=== PATIENT | male | born 2000 | race Two or more races ===

== ENCOUNTER 2020-02-12 17:53 | Outpatient (REF) | payer MEDICAID, SELFPAY | END 2020-02-12 17:54 | disposition home or self-care (01) | LOC: HO.LAB 17:53 | PROVIDERS: Visit Provider Internal Medicine | DX: Z20.828 Contact with and (suspected) exposure to other viral communicable diseases (principal) | CPT/HCPCS: C9803; U0003 ==

== ENCOUNTER 2020-04-07 09:30 | Emergency (ER) | payer MEDICAID, SELFPAY ==
[2020-04-07 09:40] VITALS: BP 113/72; PULSE 77; RESP 14; TEMP 37.1; O2SAT 98; BMI 22.6
--- NOTE | 2020-04-07 10:01 | ED.GENADULT ---
HPI - General Adult General Chief complaint: General Medical Stated complaint: FACIAL AND TOOTH PAIN Time Seen by Provider: 04/07/20 10:00 Source: patient Mode of arrival: ambulatory Limitations: no limitations History of Present Illness HPI narrative: 19 y/o male presenting with nasal congestion and facial pain. He states his maxillary area on both sides feels very full and uncomfortable. He is blowing white, yellow and green mucus out of his nose for the last 3 days. He reports the pain is radiating to all of his upper teeth that they are sore. He denies fever, chills, N/V, ear pain, headaches, myalgias. He has no history of allergies or sinus infections. MD complaint: sinus pain Onset (ago): day(s) (3) Location: face Radiation: other (teeth) Severity: moderate Quality: aching Pain Consistency: constant Relieving factors: other (blowing nose and taking Advil ) Exacerbating factors: other (bending down ) Associated symptoms: denies other symptoms Treatments prior to arrival: NSAID Related Data Previous Rx's Medication Instructions Recorded amoxicillin-pot clavulanate 1 tab PO BID #20 tab 04/07/20 [Augmentin] fluticasone propionate [Flonase 1 spray INTRANASAL BID #16 g 04/07/20 Allergy Relief] Allergies Allergy/AdvReac Type Severity Reaction Status Date / Time No Known Allergies Allergy Unverified 11/09/19 16:49 Review of Systems Review of Systems: Constitutional: No Fever, No Chills ENT/Mouth: No sore throat, + Rhinorrhea, No Swallowing Difficulty, +nasal congestion, No ear pain Eyes: No Eye Pain, No Swelling, No Redness Cardiovascular: No Chest Pain, No SOB Respiratory: No Cough, No Sputum Gastrointestinal: No Nausea, No Vomiting, No Diarrhea, No abdominal Pain Musculoskeletal: No Myalgias Neuro: No Dizziness, No Headache Heme/Lymph: No Lymphadenopathy PMFSH Past Medical History Attestation statement: The following information was validated with the patient. Medical History Asthma Social History Social History Smoked in Last 30 Days: No Use of substances other than those prescribed or required for medical reasons: No Advance Directives: No Advance Directives Information Provided: No Physical Exam Vital Signs: Vital Signs: Last Vital Signs Temp 98.8 F 04/07/20 09:40 Pulse 77 04/07/20 09:40 Resp 14 04/07/20 09:40 BP 113/72 04/07/20 09:40 Pulse Ox 98 04/07/20 09:40 Body Mass Index 22.6 Appearance: Alert. Oriented X3. No acute distress. HEENT: normal external inspection, tender maxillary sinuses bilaterally, nasal turbinates erythematous with white nasal discharge. teeth are normal with mild tenderness of upper teeth - no decay, no gingival erythema. CVS: Normal heart rate and rhythm. Pulses normal. Respiratory: No respiratory distress. Lungs CTAB Skin: Skin warm and dry. Normal skin color. Normal skin turgor. No rashes. Extremities: atraumatic, no edema Neuro: Oriented X 3. Non-focal Course Course Course Narrative: 19 y/o male presenting with maxillary sinus pain and nasal congestion consistent with acute sinusitis. Will treat with augmentin and nasal steroid. Sinus rinses discussed. He is stable for discharge and will f/u with his PCP as needed. Discharge Plan Discharge Clinical Impression: Sinusitis Qualifiers: Sinusitis location: maxillary Chronicity: acute Recurrence: non-recurrent Qualified Code(s): J01.00 - Acute maxillary sinusitis, unspecified Patient Disposition: Home, Self-Care Instructions: Sinusitis (ED) Additional Instructions: Take the antibiotics as prescribed, complete the entire course. Use the prescribed nasal spray twice per day. Recommend Tylenol and/or Motrin as needed for pain. Recommend trial of sinus/nasal rinses with sterile water or sterile salt water. A neti pot can be found over the counter at the pharmacy. Follow the instructions on the package. Follow up with your doctor next week if no improvement. Prescriptions: New amoxicillin-pot clavulanate [Augmentin] 875-125 mg tablet 1 tab PO BID Qty: 20 RF: 0 fluticasone propionate [Flonase Allergy Relief] 50 mcg/actuation spray,suspension 1 spray intranasal BID Qty: 16 RF: 0
== END 2020-04-07 10:23 | disposition home or self-care (01) ==
PROVIDERS: Emergency Provider Emergency Medicine Emergency Medical Services
DX: J01.00 Acute maxillary sinusitis, unspecified (principal); R09.81 Nasal congestion; K08.89 Other specified disorders of teeth and supporting structures
CPT/HCPCS: 99283

== ENCOUNTER 2020-06-04 11:21 | Emergency (ER) | payer MEDICAID, SELFPAY ==
[2020-06-04 12:23] VITALS: BP 114/58; PULSE 66; RESP 16; TEMP 36.9; O2SAT 99; BMI 22.4
--- NOTE | 2020-06-04 12:59 | ED.URI ---
HPI - URI/Sore Throat General Chief Complaint: Upper Respiratory Symptoms <Pepe Jaeger NP - Last Filed: 06/04/20 15:10> Stated Complaint: congestion <Pepe Jaeger NP - Last Filed: 06/04/20 15:10> Time Seen by Provider: 06/04/20 12:59 <Pepe Jaeger NP - Last Filed: 06/04/20 15:10> Source: patient <Pepe Jaeger NP - Last Filed: 06/04/20 15:10> Mode of arrival: ambulatory <Pepe Jaeger NP - Last Filed: 06/04/20 15:10> Limitations: no limitations <Pepe Jaeger NP - Last Filed: 06/04/20 15:10> History of Present Illness HPI Narrative: Runny nose/congestion/sneezing and watery discharge from the eyes consistent with his previous allergies. No recent travel, sick contact, chest pain shortness of breath. <Pepe Jaeger NP - Last Filed: 06/04/20 15:10> MD elicited complaint: nasal congestion <Pepe Jaeger NP - Last Filed: 06/04/20 15:10> Pertinent past history: seasonal allergies <Pepe Jaeger NP - Last Filed: 06/04/20 15:10> Onset (ago): day(s) <Pepe Jaeger NP - Last Filed: 06/04/20 15:10> Severity: mild <Pepe Jaeger NP - Last Filed: 06/04/20 15:10> Description of mucous: clear <Pepe Jaeger NP - Last Filed: 06/04/20 15:10> Exacerbating factors: nothing <Pepe Jaeger NP - Last Filed: 06/04/20 15:10> Relieving factors: nothing <Pepe Jaeger NP - Last Filed: 06/04/20 15:10> Associated symptoms: denies other symptoms <Pepe Jaeger NP - Last Filed: 06/04/20 15:10> Treatments prior to arrival: none <Pepe Jaeger NP - Last Filed: 06/04/20 15:10> Related Data Home Medications: Previous Rx's Medication Instructions Recorded amoxicillin-pot clavulanate 1 tab PO BID #20 tab 04/07/20 [Augmentin] fluticasone propionate [Flonase 1 spray INTRANASAL BID #16 g 04/07/20 Allergy Relief] fluticasone propionate [Flonase 2 spray INTRANASAL DAILY #16 g 06/04/20 Allergy Relief] loratadine [Allerclear] 10 mg PO DAILY PRN #30 tab 06/04/20 <Pepe Jaeger NP - Last Filed: 06/04/20 15:10> Allergies/Adverse Reactions: Allergies Allergy/AdvReac Type Severity Reaction Status Date / Time No Known Allergies Allergy Unverified 11/09/19 16:49 <Pepe Jaeger NP - Last Filed: 06/04/20 15:10> Review of Systems Review of Systems: Constitutional: No Weight loss, No Fever, No Chills, No Night Sweats, No Fatigue, No Malaise ENT/Mouth: No Hearing loss, No Ear Pain, + Nasal Congestion, No Sinus Pain, No Hoarseness, No sore throat, + Rhinorrhea, No Swallowing Difficulty Eyes: No Eye Pain, No Swelling, No Redness, No Foreign Body, No Discharge, No Vision Changes Cardiovascular: No Chest Pain, No SOB, No Dyspnea on Exertion, No Orthopnea, No Edema, No Palpitations Respiratory: No Cough, No Sputum, No Wheezing, No Smoke Exposure, No Dyspnea Gastrointestinal: No Nausea, No Vomiting, No Diarrhea, No Constipation, No abdominal Pain, No Hematochezia, No Melena Genitourinary: No Dysuria, No Urinary Frequency, No Hematuria, No Urinary Incontinence, No Urgency, No Flank Pain, No Urinary Flow Changes, No Hesitancy Musculoskeletal: No joint pain, No Myalgias, No Joint Swelling Skin: No Skin Lesions, No rash Neuro: No Weakness, No Numbness, No Paresthesias, No Loss of Consciousness, No Dizziness, No Headache Psych: No Social Issues Heme/Lymph: No Bruising, No Bleeding,No Lymphadenopathy Endocrine: No Polyuria, No Polydipsia, No Temperature Intolerance <Pepe Jaeger NP - Last Filed: 06/04/20 15:10> Yes all other systems are reviewed and are negative <Pepe Jaeger NP - Last Filed: 06/04/20 15:10> PMFSH Past Medical History Medical History: Medical History Asthma <Pepe Jaeger NP - Last Filed: 06/04/20 15:10> Social History Social History: Social History Advance Directives: No Advance Directives Information Provided: Yes <Pepe Jaeger NP - Last Filed: 06/04/20 15:10> Physical Exam Vital Signs: Vital Signs: Last Vital Signs Temp 98.5 F 06/04/20 12:23 Pulse 66 06/04/20 12:23 Resp 16 06/04/20 12:23 BP 114/58 L 06/04/20 12:23 Pulse Ox 99 06/04/20 12:23 Body Mass Index 22.4 Reviewed <Pepe Jaeger NP - Last Filed: 06/04/20 15:10> Vital Signs: Last Vital Signs Temp 98.5 F 06/04/20 12:23 Pulse 66 06/04/20 12:23 Resp 16 06/04/20 12:23 BP 114/58 L 06/04/20 12:23 Pulse Ox 99 06/04/20 12:23 Body Mass Index 22.4 <Josh Juarez MD - Last Filed: 06/13/20 10:56> Const: General: cooperative and healthy appearing; No acute distress or intoxicated appearing <Pepe Jaeger NP - Last Filed: 06/04/20 15:10> Nutritional Appearance: average body habitus <Pepe Jaeger NP - Last Filed: 06/04/20 15:10> Orientation/consciousness: patient oriented x3 <Pepe Jaeger NP - Last Filed: 06/04/20 15:10> HENMT: Head: Yes normal to inspection <Pepe Jaeger NP - Last Filed: 06/04/20 15:10> Ears: hearing grossly normal bilaterally <Pepe Jaeger NP - Last Filed: 06/04/20 15:10> Eyes: General: appearance normal, both eyes and all related structures <Pepe Jaeger NP - Last Filed: 06/04/20 15:10> Visual Faye: normal visual faye by confrontation <Pepe Jaeger NP - Last Filed: 06/04/20 15:10> Neck: Neck: Yes normal visual inspection, No positive Brudzinski's sign, No positive Kernig's sign and No tender <Pepe Jaeger - Last Filed: 06/04/20 15:10> Thyroid: Thyroid normal <[facility] Heide - Last Filed: 06/04/20 15:10> Chest: Chest palpation & inspection: normal inspection of the chest <[facility] Heide - Last Filed: 06/04/20 15:10> Resp: Effort & Inspection: normal respiratory effort <[facility] Jaeger - Last Filed: 06/04/20 15:10> Auscultation: clear to auscultation bilaterally <[facility] Jaeger - Last Filed: 06/04/20 15:10> Cardio: Jugular venous distension: no JVD <[facility] Jaeger - Last Filed: 06/04/20 15:10> Rhythm: regular rhythm <[facility] Jaeger - Last Filed: 06/04/20 15:10> Heart sounds: S1 normal heart sound present and S2 normal heart sound present <[facility] Jaeger, - Last Filed: 06/04/20 15:10> GI: Inspection: Yes normal to inspection <[facility] Jaeger - Last Filed: 06/04/20 15:10> Percussion: Yes normal to percussion <[facility] Jaeger, - Last Filed: 06/04/20 15:10> Auscultation: normal bowel sounds <[facility] Jaeger - Last Filed: 06/04/20 15:10> : General: Yes no CVA tenderness <[facility] Jaeger, - Last Filed: 06/04/20 15:10> Back/Spine/Pelvis: Back: no CVA tenderness <[facility] Jaeger - Last Filed: 06/04/20 15:10> Skin: General skin exam: no rashes or lesions noted <[facility] Jaeger, - Last Filed: 06/04/20 15:10> Neuro: General: patient oriented x3 <Pepe Jaeger, COLLECTION AGENT - Last Filed: 06/04/20 15:10> Extrem: General: Yes normal to inspection <[facility] Jaeger, - Last Filed: 06/04/20 15:10> Course Course Course Narrative: I have reviewed the chart <Josh Juarez MD - Last Filed: 06/13/20 10:56> Reevaluation(s) Reevaluation #1: COVID/RSV/flu negative given that he has had symptoms for 5 days this is likely a true negative however possibility still exist and also this is more like his allergies but will advise him for precautions supportive Care return, follow-up instructions. He verbalized understanding. Stable for discharge <Pepe Jaeger NP - Last Filed: 06/04/20 15:10> MDM - URI/Sore Throat Lab Data Labs: Lab Results 06/04/20 Range/Units 13:12 Coronavirus (PCR) NEGATIVE (Negative) Influenza Type A (PCR) NEGATIVE (Negative) Influenza Type B (PCR) NEGATIVE (Negative) RSV RNA Qual (PCR) NEGATIVE (Negative) <Pepe Jaeger NP - Last Filed: 06/04/20 15:10> Lab Results 06/04/20 Range/Units 13:12 Coronavirus (PCR) NEGATIVE (Negative) Influenza Type A (PCR) NEGATIVE (Negative) Influenza Type B (PCR) NEGATIVE (Negative) RSV RNA Qual (PCR) NEGATIVE (Negative) <Josh Juarez MD - Last Filed: 06/13/20 10:56> Discharge Plan Discharge Clinical Impression: Upper respiratory infection <Pepe Jaeger NP - Last Filed: 06/04/20 15:10> Patient Disposition: Home, Self-Care <Pepe Jaeger NP - Last Filed: 06/04/20 15:10> Instructions: Upper Respiratory Infection (ED) <Pepe Jaeger NP - Last Filed: 06/04/20 15:10> Additional Instructions: Your COVID test was negative today <Pepe Jaeger NP - Last Filed: 06/04/20 15:10> Prescriptions: New fluticasone propionate [Flonase Allergy Relief] 50 mcg/actuation spray,suspension 2 spray intranasal DAILY Qty: 16 RF: 0 loratadine [Allerclear] 10 mg tablet 10 mg PO DAILY PRN (Reason: allergy symptoms) Qty: 30 RF: 0 No Action amoxicillin-pot clavulanate [Augmentin] 875-125 mg tablet 1 tab PO BID Qty: 20 RF: 0 fluticasone propionate [Flonase Allergy Relief] 50 mcg/actuation spray,suspension 1 spray intranasal BID Qty: 16 RF: 0 <Pepe Jaeger NP - Last Filed: 06/04/20 15:10> Referrals: Physician,Unknown [Primary Care Provider] - 2 days <Pepe Jaeger NP - Last Filed: 06/04/20 15:10> Interventions: ED Discharge Assessment Last Done: 06/04/20 15:01 <Pepe Jaeger NP - Last Filed: 06/04/20 15:10> Discharge Date/Time: 06/04/20 15:01 <Pepe Jaeger NP - Last Filed: 06/04/20 15:10>
[2020-06-04 14:13] LABS: Influenza A PCR NEGATIVE (Negative); Influenza B PCR NEGATIVE (Negative); Resp Syncy Virus RNA Qual PCR NEGATIVE (Negative); SARS COV2 PCR INHOUSE NEGATIVE (Negative)
== END 2020-06-04 15:01 | disposition home or self-care (01) ==
PROVIDERS: Nurse Practitioner Primary Care; Emergency Provider Emergency Medicine
DX: J06.9 Acute upper respiratory infection, unspecified (principal); Z20.822 Contact with and (suspected) exposure to COVID-19; J45.909 Unspecified asthma, uncomplicated
CPT/HCPCS: 0241U; 36415; 99283

== ENCOUNTER 2020-06-14 20:35 | Emergency (ER) | payer MEDICAID, SELFPAY ==
[2020-06-14 21:20] VITALS: BP 121/65; PULSE 98; RESP 18; TEMP 37.1; O2SAT 98
[2020-06-14 21:25] VITALS: BMI 22.4
[2020-06-14 22:07] LABS: COVID-19 Test Negative (Negative)
[2020-06-14 23:15] VITALS: BP 113/74; PULSE 71; RESP 16; O2SAT 98
--- NOTE | 2020-06-14 23:15 | PC.NURSE ---
Pt sitting upright in room, speaking full sentences, denies pain, awaiting primary MD yamileth. VSS. Continue to monitor.
--- NOTE | 2020-06-14 23:20 | PC.NURSE ---
at bedside for primary eval.
--- NOTE | 2020-06-14 23:26 | ED.GENADULT ---
HPI - General Adult General Chief complaint: Upper Respiratory Symptoms Stated complaint: COVID SYMPTOMS Time Seen by Provider: 06/14/20 21:49 Source: patient Mode of arrival: ambulatory History of Present Illness HPI narrative: 19-year-old male with out significant past medical history presents with ?runny nose, ear popping, sore throat, nasal congestion, itchy eyes?. Patient states that he has been taking Claritin without any additional antihistamines or Flonase and states that the medication has only helped him out for a couple of hours at a time. Otherwise, he denies any fever, chills, GI symptoms, new cough. Related Data Previous Rx's Medication Instructions Recorded amoxicillin-pot clavulanate 1 tab PO BID #20 tab 04/07/20 [Augmentin] fluticasone propionate [Flonase 1 spray INTRANASAL BID #16 g 04/07/20 Allergy Relief] fluticasone propionate [Flonase 2 spray INTRANASAL DAILY #16 g 06/04/20 Allergy Relief] loratadine [Allerclear] 10 mg PO DAILY PRN #30 tab 06/04/20 Allergies Allergy/AdvReac Type Severity Reaction Status Date / Time No Known Allergies Allergy Unverified 11/09/19 16:49 Review of Systems Review of Systems: Pertinent positives and negatives as stated in HPI 10 point review of systems otherwise negative. PMFSH Past Medical History Source: nursing notes reviewed Medical History Asthma Social History Social History Advance Directives: No Advance Directives Information Provided: Yes Physical Exam Vital Signs: Vital Signs: Last Vital Signs Temp 98.8 F 06/14/20 21:20 Pulse 71 06/14/20 23:15 Resp 16 06/14/20 23:15 BP 113/74 06/14/20 23:15 Pulse Ox 98 06/14/20 23:15 Body Mass Index 22.4 VITAL SIGNS: Reviewed. GENERAL: Well developed, well nourished, in no acute distress. HEAD: Normocephalic/atraumatic, EYES: PERRLA, EOMI with watery discharge and no evidence of conjunctival injection EARS: Ext canals without abnormality, mild bulging but non-erythematous NOSE: Nares patent bilateral, boggy turbinates OROPHARYNX: no oral lesions noted, posterior pharynx clear, cobblestoning, and non-erythematous without noted tonsillar enlargement/erythema/exudates NECK: Supple, no adenopathy LUNGS: Normal breath sounds. No adventitious sounds or accessory muscle use. SpO2<98> CARDIOVASCULAR: Regular rate and rhythm without noted murmurs ABDOMEN: Soft, non-tender, non-distended with bowel sounds. NEUROLOGIC: Alert and oriented x 4. Course Course Course Narrative: 19-year-old male with history and clinical presentation consistent with allergic rhinitis and review COVID serology is negative. No evidence to suggest asthma exacerbation. Medical Decision Making Lab Data Labs: Lab Results 06/14/20 Range/Units 21:35 COVID-19 (ERMELINDA) Negative (Negative) COVID-19 Clin Com See Note Discharge Plan Discharge Clinical Impression: Allergic rhinitis Patient Disposition: Home, Self-Care Instructions: Allergic Rhinitis (ED), Fluticasone (Into the nose), Loratadine (By mouth) Additional Instructions: Recommend using Flonase in conjunction with Claritin, Daily, as directed on the outside packaging for improved symptom control. You may need to add additional [id number] medications such as Benadryl or Zyrtec. Do not hesitate to follow-up with your primary care provider in the next 2-3 days for further re-evaluation. Return to the emergency department if you experience any acute worsening of your symptoms. Prescriptions: No Action amoxicillin-pot clavulanate [Augmentin] 875-125 mg tablet 1 tab PO BID Qty: 20 RF: 0 fluticasone propionate [Flonase Allergy Relief] 50 mcg/actuation spray,suspension 1 spray intranasal BID Qty: 16 RF: 0 fluticasone propionate [Flonase Allergy Relief] 50 mcg/actuation spray,suspension 2 spray intranasal DAILY Qty: 16 RF: 0 loratadine [Allerclear] 10 mg tablet 10 mg PO DAILY PRN (Reason: allergy symptoms) Qty: 30 RF: 0 Referrals: Physician,Unknown [Primary Care Provider] - 2 days
== END 2020-06-14 23:42 | disposition home or self-care (01) ==
PROVIDERS: Emergency Provider Student in an Organized Health Care Education/Training Program
DX: J30.9 Allergic rhinitis, unspecified (principal); R05 Cough; Z20.822 Contact with and (suspected) exposure to COVID-19
CPT/HCPCS: 36415; 87635; 99284

== ENCOUNTER 2021-03-02 22:14 | Emergency (ER) | payer MEDICAID, SELFPAY ==
--- NOTE | ~2021-03-02 | XR_ITS ---
EXAMINATION: XR CHEST CLINICAL INFORMATION: Cough COMPARISON: 05/14/2019 TECHNIQUE: Frontal view of the chest was obtained. FINDINGS: No significant abnormality is noted involving the heart, lungs, mediastinum, bony thorax or soft tissues. XR/XR chest 1V IMPRESSION: Unremarkable examination.
[2021-03-02 22:20] VITALS: BP 141/82; PULSE 114; RESP 16; TEMP 38.3; O2SAT 98; BMI 25.7
[2021-03-02 22:36] LABS: COVID-19 Test Positive (Negative); IDNOW Serial# 9DD0AD1C
--- NOTE | 2021-03-02 23:37 | ED_ITS ---
HPI - URI/Sore Throat General Chief Complaint: Upper Respiratory Symptoms Stated Complaint: sinus pressure Time Seen by Provider: 03/02/21 22:23 Source: patient Mode of arrival: ambulatory History of Present Illness HPI Narrative: 20-year-old male without significant past medical history who presents without COVID-19 vaccination for headache, dry cough, sore throat and fever for 1 week without associated nausea, vomiting, diarrhea and states he took a COVID test yesterday at home but that it was negative. Related Data Previous Rx's Medication Instructions Recorded amoxicillin 875 mg-potassium 1 tab PO BID #20 tab 04/07/20 clavulanate 125 mg tablet (Augmentin) fluticasone propionate 50 1 spray INTRANASAL BID #16 g 04/07/20 mcg/actuation nasal spray,suspension (Flonase Allergy Relief) fluticasone propionate 50 2 spray INTRANASAL DAILY #16 g 06/04/20 mcg/actuation nasal spray,suspension (Flonase Allergy Relief) loratadine 10 mg tablet 10 mg PO DAILY PRN #30 tab 06/04/20 (Allerclear) Allergies Allergy/AdvReac Type Severity Reaction Status Date / Time No Known Allergies Allergy Unverified 03/02/21 22:22 Review of Systems Review of Systems: Pertinent positives and negatives as stated in HPI 10 point review of systems is otherwise negative. PMFSH Past Medical History Source: nursing notes reviewed Medical History Asthma Social History Social History Advance Directives: No Advance Directives Information Provided: Yes Physical Exam Vital Signs: Vital Signs: Last Vital Signs Temp 100.9 F H 03/02/21 22:20 Pulse 114 H 03/02/21 22:20 Resp 16 03/02/21 22:20 BP 141/82 H 03/02/21 22:20 Pulse Ox 98 03/02/21 22:20 BMI result Body Mass Index 25.7 VITAL SIGNS: Reviewed. GENERAL: Appears well, Well developed, well nourished, in no acute distress. HEAD: Normocephalic/atrauatic, EYES: PERRLA, EOMI EARS: Ext canals without abnormality, TMs non-bulging and non-erythematous NOSE: Nares patent bilateral OROPHARYNX: no oral lesions noted, posterior pharynx clear and non-erythematous without noted tonsillar enlargement/erythema/exudates NECK: Supple, no adenopathy LUNGS: Normal breath sounds, no tachypnea No adventitious sounds or accessory muscle use. SpO2<98> CARDIOVASCULAR: Regular rate and rhythm without noted murmurs ABDOMEN: Soft, non-tender, non-distended with bowel sounds. NEUROLOGIC: Alert and oriented x 4. Course Course Course Narrative: 20-year-old male with history and clinical presentation consistent with viral syndrome and review of all investigations consistent with COVID-19 infection. Patient was informed of all results, instructed on isolation, and on treatment regimen. Who is otherwise discharged home in stable condition without evidence of tachypnea, tachycardia, was treated here for elevated temperature with Tylenol and ibuprofen, and is otherwise oxygenating well on room air. MDM - URI/Sore Throat Lab Data Labs: Lab Results 03/02/21 Range/Units 22:20 COVID-19 (ERMELINDA) Positive A (Negative) COVID-19 Clin Com See Note Discharge Plan Discharge Clinical Impression: Lab test positive for detection of COVID-19 virus, Viral syndrome Patient Disposition: Home, Self-Care Instructions: Viral Syndrome (ED), COVID-19 (Coronavirus Disease 2019) (ED) Additional Instructions: 1. Recommend [id number] Tylenol/ibuprofen for body aches, headaches, temperatures greater than 100.4. 2. Recommend NyQuil for cough, be cautious regarding the Tylenol content within NyQuil and do not exceed 4000 mg within 24 hours. You have tested positive for COVID-19 and must isolate for the next 14 days and follow all state and Federal guidelines. Return to the ER for worsening symptoms. Prescriptions: No Action amoxicillin-pot clavulanate [Augmentin] 875-125 mg tablet 1 tab PO BID Qty: 20 RF: 0 fluticasone propionate [Flonase Allergy Relief] 50 mcg/actuation spray,suspension 1 spray intranasal BID Qty: 16 RF: 0 fluticasone propionate [Flonase Allergy Relief] 50 mcg/actuation sp ray,suspension 2 spray intranasal DAILY Qty: 16 RF: 0 loratadine [Allerclear] 10 mg tablet 10 mg PO DAILY PRN (Reason: allergy symptoms) Qty: 30 RF: 0
[2021-03-02] MEDS: Ibuprofen 400 MG TABLET PO (23:38)
[2021-03-02] MEDS: Acetaminophen 325 MG TABLET 975 MG PO (23:38)
[2021-03-03 00:05] VITALS: BP 120/75; PULSE 102; RESP 17; TEMP 38.1; O2SAT 95
== END 2021-03-03 00:14 | disposition home or self-care (01) ==
LOC: HO.ED 23:52
PROVIDERS: Emergency Provider Student in an Organized Health Care Education/Training Program
DX: U07.1 COVID-19 (principal); R51.9 Headache, unspecified; R05.9 Cough, unspecified; R50.9 Fever, unspecified
CPT/HCPCS: 71045; 87635; 99283

== ENCOUNTER 2021-05-30 15:54 | Emergency (ER) | payer MEDICAID, SELFPAY ==
--- NOTE | 2021-05-30 16:44 | PC.NURSE ---
called patient at this time, no response
--- NOTE | 2021-05-30 17:14 | PC.NURSE ---
attempted to call patient at this time, no response
== END 2021-05-30 17:15 | disposition left against medical advice (07) ==
PROVIDERS: Emergency Provider Emergency Medicine
DX: J02.9 Acute pharyngitis, unspecified (principal)

== ENCOUNTER 2021-05-31 17:46 | Emergency (ER) | payer MEDICAID, SELFPAY ==
[2021-05-31 17:58] VITALS: BP 127/79; PULSE 81; RESP 19; TEMP 37.6; O2SAT 98; BMI 27.1
--- NOTE | 2021-05-31 18:23 | ED.URI ---
HPI - URI/Sore Throat General Chief Complaint: Upper Respiratory Symptoms Stated Complaint: sorethroat Time Seen by Provider: 05/31/21 17:58 Source: patient Mode of arrival: ambulatory History of Present Illness HPI Narrative: 20-year-old male with a past medical history of asthma presenting to the ED complaining of sore throat, nasal congestion/rhinorrhea x2 days. Reports slight cough. Denies fever, chills, ear pain,, inability/difficulty swallowing, recent travel MD elicited complaint: sore throat Onset (ago): day(s) Related Data Previous Rx's Medication Instructions Recorded amoxicillin 875 mg-potassium 1 tab PO BID #20 tab 04/07/20 clavulanate 125 mg tablet (Augmentin) fluticasone propionate 50 1 spray INTRANASAL BID #16 g 04/07/20 mcg/actuation nasal spray,suspension (Flonase Allergy Relief) fluticasone propionate 50 2 spray INTRANASAL DAILY #16 g 06/04/20 mcg/actuation nasal spray,suspension (Flonase Allergy Relief) loratadine 10 mg tablet 10 mg PO DAILY PRN #30 tab 06/04/20 (Allerclear) Allergies Allergy/AdvReac Type Severity Reaction Status Date / Time No Known Allergies Allergy Verified 05/31/21 18:21 Review of Systems Review of Systems: Constitutional: No Fever, No Chills ENT/Mouth: No Ear Pain, + Nasal Congestion, No Sinus Pain, No Hoarseness, + sore throat, + Rhinorrhea, No Swallowing Difficulty Cardiovascular: No Chest Pain, No SOB Respiratory: No Cough, No Sputum, No Wheezing Gastrointestinal: No Nausea, No Vomiting, No Diarrhea, No Constipation, No Abdominal pain Genitourinary:, No Dysuria, No Urinary Frequency, No Flank Pain Musculoskeletal: No joint pain, No Myalgias, No Joint Swelling Skin: No Skin Lesions, No rash Neuro: No Weakness, No Numbness, No Paresthesias Yes all other systems are reviewed and are negative [facility] Past Medical History Attestation statement: The following information was validated with the patient. Medical History Asthma Social History Social History Advance Directives: No Advance Directives Information Provided: No Physical Exam Vital Signs: Vital Signs: Last Vital Signs Temp 99.6 F 05/31/21 17:58 Pulse 81 05/31/21 17:58 Resp 19 05/31/21 17:58 BP 127/79 05/31/21 17:58 Pulse Ox 98 05/31/21 17:58 BMI result Body Mass Index 27.1 Const: General: cooperative, healthy appearing, no acute distress, well developed, alert and awake Orientation/consciousness: patient oriented x3 Limitations: no limitations HEENT: Other: + bilateral tonsillar swelling, no erythema, no exudates Head: Yes normal to inspection Ears: hearing grossly normal bilaterally General nose exam: Normal external nose present Face and sinus: Yes normal facial exam Throat: Yes uvula midline, No peritonsillar mass, No uvula laterally displaced and No uvular edema Eyes: General: appearance normal, both eyes and all related structures EOM: EOMs intact bilaterally Neck: Neck: Yes normal visual inspection, Yes no meningeal signs, Yes trachea midline and Yes supple Resp: Effort & Inspection: normal respiratory effort, no respiratory distress and no stridor Auscultation: clear to auscultation bilaterally, no rales, no rhonchi and no wheezes Cardio: Rate: regular rate Heart sounds: S1 normal heart sound present and S2 normal heart sound present GI: Inspection: Yes normal to inspection : General: Yes no CVA tenderness Back/Spine/Pelvis: Back: no CVA tenderness Skin: Rashes: no rashes Wounds: no wounds Neuro: General: patient oriented x3 and no meningeal signs Gait exam (Neuro): Normal gait present Extrem: General: Yes normal to inspection Course Course Course Narrative: -COVID-19 negative. Rapid strep negative. MDM - URI/Sore Throat MDM Narrative Medical decision making narrative: 20-year-old male with a past medical history of asthma presenting to the ED complaining of sore throat, nasal congestion/rhinorrhea x2 days. On exam vital signs stable, low-grade temp 99.6 degrees, NAD, nontoxic appearing, talking in complete sentences, bilateral tonsillar swelling noted without exudates, handling secretions, lungs CTA. Concern for pharyngitis vs viral syndrome. No evidence of [employer] Plan: COVID-19/rapid strep Medical Records Attestation: I reviewed the patient's medical records. Lab Data Attestation: I reviewed the patient's lab results. Labs: Lab Results 05/31/21 05/31/21 Range/Units 18:09 18:09 COVID-19 (ER[facility]DA) Negative (Negative) COVID-19 Clin Com See Note S. pyogenes GrpA [facility] Negative (Negative) Discharge Plan Discharge Clinical Impression: Pharyngitis Patient Disposition: Home, Self-Care Instructions: Pharyngitis (ED) Additional Instructions: you tested negative for COVID-19 and strep throat Gargle with warm salt water as needed Take Tylenol and Motrin Please follow-up with her doctor If you develop fever unresolved with medications, difficulty/inability to swallow please return to the emergency department Prescriptions: No Action amoxicillin-pot clavulanate [Augmentin] 875-125 mg tablet 1 tab PO BID Qty: 20 0RF fluticasone propionate [Flonase Allergy Relief] 50 mcg/actuation spray,suspension 1 spray intranasal BID Qty: 16 0RF Rx Instructions: administer into each nostril fluticasone propionate [Flonase Allergy Relief] 50 mcg/actuation spray,suspension 2 spray intranasal DAILY Qty: 16 0RF Rx Instructions: administer into each nostril loratadine [Allerclear] 10 mg tablet 10 mg PO DAILY PRN (Reason: allergy symptoms) Qty: 30 0RF Referrals: [facility] [Primary Care Provider] - 5 days
[2021-05-31 18:26] LABS: Strep A Nucleic Acid Negative (Negative)
[2021-05-31 18:34] LABS: COVID-19 Test Negative (Negative)
== END 2021-05-31 18:57 | disposition home or self-care (01) ==
PROVIDERS: Physician Assistant Medical; Emergency Provider Internal Medicine
DX: J02.9 Acute pharyngitis, unspecified (principal); Z20.822 Contact with and (suspected) exposure to COVID-19
CPT/HCPCS: 36415; 87635; 87651; 99283

== ENCOUNTER 2021-07-05 01:42 | Emergency (ER) | payer MEDICAID, SELFPAY ==
[2021-07-05 03:20] VITALS: BP 136/88; PULSE 97; RESP 18; TEMP 37.9; O2SAT 98; BMI 28.0
[2021-07-05] MEDS: Acetaminophen 325 MG TABLET 650 MG PO (03:25)
[2021-07-05 03:49] LABS: COVID-19 Test Negative (Negative); IDNOW Serial# 16C4AD1C; Influenza A Positive (Negative); Influenza B2 Negative (Negative)
[2021-07-05 04:13] VITALS: BP 137/91; PULSE 93; RESP 14; TEMP 36.9; O2SAT 98
--- NOTE | 2021-07-05 05:30 | PC.NURSE ---
pt was told results and left without being seen. Provider is aware.
== END 2021-07-05 05:30 | disposition left against medical advice (07) ==
PROVIDERS: Emergency Provider Emergency Medicine; PCP Nurse Practitioner
DX: R05.9 Cough, unspecified (principal); R09.89 Other specified symptoms and signs involving the circulatory and respiratory systems; R51.9 Headache, unspecified; Z20.822 Contact with and (suspected) exposure to COVID-19
CPT/HCPCS: 87502; 87635; 99282; 99283

== ENCOUNTER 2022-05-09 02:00 | Emergency (ER) | payer MEDICAID, SELFPAY ==
[2022-05-09 02:07] VITALS: BP 119/74; PULSE 79; RESP 16; TEMP 36.8; O2SAT 96; BMI 29.2
--- NOTE | 2022-05-09 03:03 | ED_ITS ---
HPI - General Adult General Chief complaint: General Medical Stated complaint: Sore throat Time Seen by Provider: 05/09/22 02:50 Source: patient Mode of arrival: ambulatory Limitations: no limitations History of Present Illness HPI narrative: Patient history of recurrent tonsillitis complaining of pain since morning painful to swallow patient usually start like this and get worse just admitted him to the ER no fever no chills no earache no rash no shortness of breath or cough Related Data Previous Rx's Medication Instructions Recorded amoxicillin 875 mg-potassium 1 tab PO BID #20 tabs 04/07/20 clavulanate 125 mg tablet (Augmentin) fluticasone propionate 50 1 spray intranasal BID #16 grams 04/07/20 mcg/actuation nasal spray,suspension (Flonase Allergy Relief) fluticasone propionate 50 2 spray intranasal DAILY #16 grams 06/04/20 mcg/actuation nasal spray,suspension (Flonase Allergy Relief) loratadine 10 mg tablet 10 mg PO DAILY PRN allergy 06/04/20 (Allerclear) symptoms #30 tabs amoxicillin 875 mg-potassium 1 tab PO BID #20 tabs 05/09/22 clavulanate 125 mg tablet Allergies Allergy/AdvReac Type Severity Reaction Status Date / Time No Known Allergies Allergy Verified 05/31/21 18:21 Review of Systems Review of Systems: Yes all other systems are reviewed and are negative [facility] Past Medical History Medical History Asthma Social History Social History Alcohol intake: current Alcohol intake frequency: holidays/special occasions only Smoked in Last 30 Days: No Use of substances other than those prescribed or required for medical reasons: No Advance Directives: No Advance Directives Information Provided: No Physical Exam ED Vital Signs: Vital Signs - 24 hr 05/09/22 02:07 Temperature 98.3 F Pulse Rate 79 Respiratory Rate 16 Blood Pressure 119/74 Pulse Oximetry 96 Oxygen Delivery Method Room Air BMI result Body Mass Index 29.2 Appearance: Alert. Oriented X3. No acute distress. ENT: Bilateral tonsils enlarged slightly red no exudate Oral Mucosa moist Neck: Normal inspection. Neck supple. CVS: Normal heart rate and rhythm. Pulses normal. Respiratory: No respiratory distress. Equal air entry bilateral, Abdomen: Soft and nontender. Skin: Skin warm and dry. Normal skin color. Normal skin turgor. Extremities: No lower extremity edema. Neuro: Oriented X 3. Medications Administered Discontinued Medications Generic Name Dose Route Start Last Admin Trade Name Freq PRN Reason Stop Dose Admin Amoxicillin/Clavulanate Potassium 875 mg 05/09/22 03:03 05/09/22 03:12 Amoxicillin/Potassium Clav 875 Mg Tablet PO 05/09/22 03:04 875 mg ONCE ONE Administration Medical Decision Making Lab Data [facility] Lab Attestation statement: I reviewed the patient's lab results. Labs: Lab Results 05/09/22 Range/Units 03:08 S. pyogenes GrpA [facility] Negative (Negative) Discharge Plan Discharge Clinical Impression: Acute erythematous tonsillitis Patient Disposition: Home, Self-Care Instructions: Tonsillitis (ED) Additional Instructions: Drink plenty of fluid Take antibiotic as prescribed Follow with PCP as needed Prescriptions: New amoxicillin-pot clavulanate 875-125 mg tablet 1 tab PO BID Qty: 20 0RF No Action amoxicillin-pot clavulanate [Augmentin] 875-125 mg tablet 1 tab PO BID Qty: 20 0RF fluticasone propionate [Flonase Allergy Relief] 50 mcg/actuation spray,suspension 1 spray intranasal BID Qty: 16 0RF Rx Instructions: administer into each nostril fluticasone propionate [Flonase Allergy Relief] 50 mcg/actuation spray,suspension 2 spray intranasal DAILY Qty: 16 0RF Rx Instructions: administer into each nostril loratadine [Allerclear] 10 mg tablet 10 mg PO DAILY PRN (Reason: allergy symptoms) Qty: 30 0RF
[2022-05-09] MEDS: Amoxicillin/Potassium Clav 875 MG TABLET PO (03:12)
[2022-05-09 03:21] LABS: Strep A Nucleic Acid Negative (Negative)
== END 2022-05-09 04:18 | disposition home or self-care (01) ==
PROVIDERS: Emergency Provider Internal Medicine
DX: J03.90 Acute tonsillitis, unspecified (principal)
CPT/HCPCS: 36415; 87651; 99283; 99284

== ENCOUNTER 2022-07-07 06:22 | Emergency (ER) | payer MEDICAID, SELFPAY ==
[2022-07-07 06:37] VITALS: BP 133/93; PULSE 78; RESP 14; TEMP 37.1; O2SAT 98
--- NOTE | 2022-07-07 07:04 | ED.GENADULT ---
HPI - General Adult General Chief complaint: General Medical Stated complaint: Cough/Congested Time Seen by Provider: 07/07/22 07:04 Source: patient Mode of arrival: ambulatory Limitations: no limitations History of Present Illness HPI narrative: Patient is a 21 year old assigned male at with no reported medical history presenting to the emergency department today with sinus congestion. Patient states that he has had sinus congestion for 2 weeks and it is not getting better. Patient denies any dizziness, lightheadedness, abdominal pain, nausea, vomiting, fever, chills, blurry vision, double vision, loss of vision, chest pain, difficulty breathing, shortness of breath, back pain, night sweats, pain with urination, increased urinary frequency, increased urinary urgency, blood in his urine or stool, syncope or a near syncopal episode, recent trauma or falls, bowel incontinence, bladder incontinence, bowel retention, bladder retention, or any other complaints at this time. Onset (ago): week(s) (2) Severity: mild Severity scale (1-10): 2 Relieving factors: none Exacerbating factors: none Associated symptoms: denies other symptoms Treatments prior to arrival: none Related Data Previous Rx's Medication Instructions Recorded amoxicillin 875 mg-potassium 1 tab PO BID #20 tabs 04/07/20 clavulanate 125 mg tablet (Augmentin) fluticasone propionate 50 1 spray intranasal BID #16 grams 04/07/20 mcg/actuation nasal spray,suspension (Flonase Allergy Relief) fluticasone propionate 50 2 spray intranasal DAILY #16 grams 06/04/20 mcg/actuation nasal spray,suspension (Flonase Allergy Relief) loratadine 10 mg tablet 10 mg PO DAILY PRN allergy 06/04/20 (Allerclear) symptoms #30 tabs amoxicillin 875 mg-potassium 1 tab PO BID #20 tabs 05/09/22 clavulanate 125 mg tablet doxycycline hyclate 100 mg tablet 100 mg PO BID 7 days #14 tabs 07/07/22 loratadine 10 mg tablet 10 mg PO DAILY #30 tabs 07/07/22 prednisone 20 mg tablet 20 mg PO DAILY 7 days #7 tabs 07/07/22 Allergies Allergy/AdvReac Type Severity Reaction Status Date / Time No Known Allergies Allergy Verified 05/31/21 18:21 Review of Systems Constitutional: Constitutional: Reports no additional constitutional complaints, Denies chills, Denies fever(s) and Denies night sweats Eyes: Eyes: Reports no additional eye complaints, Denies blurry vision, Denies change in vision, Denies diplopia, Denies eye discharge, Denies loss of vision and Denies eye pain ENT: Denies dizziness and Reports nasal congestion Cardiovascular: Cardiovascular: Reports no additional cardiovascular complaints, Denies chest pain, Denies lightheadedness, Denies Loss of Consciousness and Denies dyspnea Respiratory: Respiratory: Reports no additional respiratory complaints and Denies dyspnea Gastrointestinal: Gastrointestinal: Reports no additional gastrointestinal complaints, Denies abdominal pain, Denies melena, Denies hematochezia, Denies change in bowel habits and Denies change in stool character Genitourinary: Genitourinary: Reports no additional male genitourinary complaints, Denies hematuria, Denies oliguria, Denies difficulty urinating, Denies dysuria, Denies urinary frequency, Denies urinary hesitancy, Denies urinary incontinence and Denies urinary urgency Musculoskeletal: Musculoskeletal: Reports no additional musculoskeletal complaints, Denies numbness and Denies tingling Neurologic: Denies dizziness, Denies loss of vision, Denies numbness and Denies tingling Psychiatric: Psychiatric: Reports no additional psychiatric complaints Endocrine: Endocrine: Reports no additional endocrine complaints Hematologic/Lymphatic: Hematologic/Lymphatic: Reports no additional hematologic/lymphatic complaints Allergic/Immunologic: Allergic/Immunologic: Reports no additional allergic/immunologic complaints [facility] Past Medical History Attestation statement: The following information was validated with the patient. Source: old records reviewed and nursing notes reviewed Medical History Asthma Social History Social History Alcohol intake: current Alcohol intake frequency: holidays/special occasions only Smoked in Last 30 Days: No Use of substances other than those prescribed or required for medical reasons: No Advance Directives: No Advance Directives Information Provided: No Physical Exam ED Vital Signs: Vital Signs - 24 hr 07/07/22 06:37 07/07/22 07:25 Temperature 98.7 F Pulse Rate 78 Respiratory Rate 14 18 Blood Pressure 133/93 H Pulse Oximetry 98 Oxygen Delivery Method Room Air BMI result Body Mass Index 30.0 Const General: cooperative, no acute distress, alert and awake Nutritional Appearance: well nourished Orientation/consciousness: patient oriented x3 Limitations: no limitations HENMT Head: Yes normal to inspection and Yes atraumatic Ears: hearing grossly normal bilaterally and external ears normal General nose exam: Normal external nose present, no nasal discharge noted and no epistaxis Face and sinus: Yes normal facial exam, No abrasion and No laceration Mouth: Normal oral and palatal mucosa present, no drooling and no muffled voice Eyes General: appearance normal, both eyes and all related structures Periorbital: periorbital findings normal Eyelids: Yes eyelids normal Conjunctivae: conjunctivae normal Pupils: Equal, round and reactive pupils present EOM: EOMs intact bilaterally Neck Neck: Yes normal visual inspection, Yes full ROM and Yes no lymphadenopathy Chest Chest palpation & inspection: normal inspection of the chest Resp Effort & Inspection: normal respiratory effort and able to speak in complete sentences Auscultation: clear to auscultation bilaterally Cardio Rate: regular rate Rhythm: regular rhythm GI Inspection: Yes normal to inspection Neuro General: patient oriented x3 and moves all extremities Cranial nerves: Yes Equal, round and reactive pupils present Cognition (Neuro): normal cognition Motor exam (neuro): 5/5 motor strength present throughout Sensory Exam: Normal double simultaneous stimulation for sensation Coordination: [id number] test normal Extrem General: Yes normal to inspection, Yes full ROM and Yes capillary refill normal Psych Appearance: grossly normal Mental Status: mental status grossly normal Affect: normal affect Attitude: cooperative Thought process: Normal thought process present Thought content: Normal thought content present Insight: Good insight present (Psych) Medical Decision Making Medical Decision Making MDM Narrative: Patient is a 21 year old assigned male at with no reported medical history presenting to the emergency department today with nasal congestion. Patient's physical exam was unremarkable. Patients' COVID/Flu/Strep swabs were negative. I explained my physical exam findings as well as all test results to the patient. I answered all questions asked by the patient. I stressed the importance of the patient taking his medication as prescribed. I stressed the importance of the patient following up with his primary care provider. I stressed the importance of the patient returning to the emergency department immediately if his symptoms were to worsen or if he were to develop any dizziness, shortness of breath, difficulty breathing, chest pain, blurry vision, loss of vision, nausea, vomiting, abdominal pain, fever, chills, back pain, or any other complaints. Patient verbalized agreement and understanding with this treatment plan and discharge. Differential Diagnosis Differential Diagnoses: The differential diagnosis associated with the presentation includes sinusitis Lab Data MDM Lab Attestation statement: I reviewed the patient's lab results. Labs: Lab Results 07/07/22 07/07/22 07/07/22 Range/Units 07:23 07:24 07:24 COVID-19 ([facility]) Negative (Negative) COVID-19 Clin Com See Note Influenza Type A ([facility]) Negative (Negative) Influenza Type B ([facility]) Negative (Negative) Influenza A & B Note See Note S. pyogenes GrpA [facility] Negative (Negative) Discharge Plan Discharge Clinical Impression: Sinusitis Patient Disposition: Home, Self-Care Instructions: Sinusitis (ED) Additional Instructions: Continue taking the LORATADINE, DAILY, for your seasonal allergies. You can obtain it over the counter - look at the active ingredient of store brand allergy medications. Follow up with your primary care provider. Return to the emergency department immediately if your symptoms worsen or if you develop any dizziness, shortness of breath, difficulty breathing, chest pain, blurry vision, loss of vision, nausea, vomiting, abdominal pain, fever, chills, back pain, or any other complaints. Prescriptions: New prednisone 20 mg tablet 20 mg PO DAILY 7 Days Qty: 7 0RF doxycycline hyclate 100 mg tablet 100 mg PO BID 7 Days Qty: 14 0RF loratadine 10 mg tablet 10 mg PO DAILY Qty: 30 0RF No Action amoxicillin-pot clavulanate [Augmentin] 875-125 mg tablet 1 tab PO BID Qty: 20 0RF fluticasone propionate [Flonase Allergy Relief] 50 mcg/actuation spray,suspension 1 spray intranasal BID Qty: 16 0RF Rx Instructions: administer into each nostril fluticasone propionate [Flonase Allergy Relief] 50 mcg/actuation spray,suspension 2 spray intranasal DAILY Qty: 16 0RF Rx Instructions: administer into each nostril loratadine [Allerclear] 10 mg tablet 10 mg PO DAILY PRN (Reason: allergy symptoms) Qty: 30 0RF amoxicillin-pot clavulanate 875-125 mg tablet 1 tab PO BID Qty: 20 0RF Referrals: G[facility] [Primary Care Provider] - Stand Alone Forms: Work/School Release Interventions: ED Discharge Assessment Last Done: 07/07/22 08:16 Discharge Date/Time: 07/07/22 08:17 Print Language: Nepalese
[2022-07-07 07:25] VITALS: RESP 18
[2022-07-07 07:46] LABS: IDNOW Serial# 08D9AD1C; Strep A Nucleic Acid Negative (Negative)
[2022-07-07 07:46] LABS: COVID-19 Test Negative (Negative); IDNOW Serial# 9DB6401D; IDNOW Serial# BCCEAD1C; Influenza A Negative (Negative); Influenza B2 Negative (Negative)
== END 2022-07-07 08:17 | disposition home or self-care (01) ==
PROVIDERS: Physician Assistant Medical; Emergency Provider Student in an Organized Health Care Education/Training Program; PCP Nurse Practitioner Primary Care
DX: J32.9 Chronic sinusitis, unspecified (principal); Z20.822 Contact with and (suspected) exposure to COVID-19
CPT/HCPCS: 87502; 87635; 87651; 99283; 99284

== ENCOUNTER 2022-09-11 15:01 | Emergency (ER) | payer MEDICAID, SELFPAY ==
--- NOTE | ~2022-09-11 | XR_ITS ---
EXAMINATION: XR CHEST CLINICAL INFORMATION: Chest pain COMPARISON: Chest x-ray 03/02/2021 TECHNIQUE: 2 views of the chest were obtained. FINDINGS: No significant abnormality is noted involving the heart, lungs, mediastinum, bony thorax or soft tissues. XR/XR chest 2V IMPRESSION: Unremarkable examination.
--- NOTE | 2022-09-11 15:29 | ED_ITS ---
HPI - General Adult General Chief complaint: Chest Pain Stated complaint: Chest pain Time Seen by Provider: 09/11/22 17:41 Source: patient Mode of arrival: ambulatory Limitations: no limitations History of Present Illness HPI narrative: Patient is a 22-year-old male with history of pleurisy presenting emergency dep artment with diffuse chest pain which lasted approximately 1 hour prior to arrival. States pain felt similar to prior episode pleurisy but has since resolved. He denies any associated shortness of breath. Denies any nausea or vomiting. Denies any diaphoresis. Denies any cough or hemoptysis. Denies recent fevers. Denies any recent surgery or immobilization. Denies any recent calf pain or swelling. MD complaint: Chest pain Onset (ago): hour(s) Location: chest Radiation: non-radiation Severity: moderate Quality: sharp Pain Consistency: now resolved Relieving factors: none Exacerbating factors: other (Deep inspiration) Associated symptoms: denies other symptoms Treatments prior to arrival: none Related Data Previous Rx's Medication Instructions Recorded amoxicillin 875 mg-potassium 1 tab PO BID #20 tabs 04/07/20 clavulanate 125 mg tablet (Augmentin) fluticasone propionate 50 1 spray intranasal BID #16 grams 04/07/20 mcg/actuation nasal spray,suspension (Flonase Allergy Relief) fluticasone propionate 50 2 spray intranasal DAILY #16 grams 06/04/20 mcg/actuation nasal spray,suspension (Flonase Allergy Relief) loratadine 10 mg tablet 10 mg PO DAILY PRN allergy 06/04/20 (Allerclear) symptoms #30 tabs amoxicillin 875 mg-potassium 1 tab PO BID #20 tabs 05/09/22 clavulanate 125 mg tablet doxycycline hyclate 100 mg tablet 100 mg PO BID 7 days #14 tabs 07/07/22 loratadine 10 mg tablet 10 mg PO DAILY #30 tabs 07/07/22 prednisone 20 mg tablet 20 mg PO DAILY 7 days #7 tabs 07/07/22 Allergies Allergy/AdvReac Type Severity Reaction Status Date / Time No Known Allergies Allergy Verified 09/11/22 15:33 Review of Systems Review of Systems: As per HPI. Yes all other systems are reviewed and are negative Constitutional: Constitutional: Reports as per HPI PMF Past Medical History Medical History Asthma Social History Social History Alcohol intake: current Alcohol intake frequency: holidays/special occasions only Physical Exam ED Vital Signs: Vital Signs - 24 hr 09/11/22 15:30 Temperature 97.7 F Pulse Rate 80 Respiratory Rate 18 Blood Pressure 141/86 H Pulse Oximetry 100 Oxygen Delivery Method Room Air BMI result Body Mass Index 29.2 Vital signs have been reviewed and appear to be correct. Blood pressure mildly elevated. Heart rate normal. Respiratory rate normal. Temperature normal. Oxygen saturation normal. Const General: cooperative, healthy appearing and no acute distress Orientation/consciousness: oriented to person, oriented to place, oriented to time and patient oriented x3 Limitations: no limitations HENMT Head: Yes normocephalic and Yes atraumatic Ears: external ears normal General nose exam: Normal external nose present Face and sinus: Yes face symmetric Mouth: oropharynx normal and moist mucous membranes Throat: Yes uvula midline Eyes Pupils: Equal, round and reactive pupils present Neck Neck: Yes normal visual inspection and Yes supple Resp Effort & Inspection: normal respiratory effort and able to speak in complete sentences Auscultation: clear to auscultation bilaterally Cardio Rate: regular rate Rhythm: regular rhythm Heart sounds: S1 normal heart sound present and S2 normal heart sound present GI Palpation (GI): Soft to palpation and nontender Auscultation: normoactive bowel sounds General: Yes no CVA tenderness Back/Spine/Pelvis Back: no CVA tenderness Skin General skin exam: elasticity normal and turgor normal Neuro General: oriented to person, oriented to place, oriented to time, patient oriented x3, moves all extremities, no focal motor deficits and CN's II-XI intact bilaterally Cranial nerves: Yes Equal, round and reactive pupils present Cognition (Neuro): normal cognition Extrem General: Yes full ROM, Yes no pedal edema and Yes no calf tenderness Psych Mental Status: mental status grossly normal Affect: normal affect Thought process: Normal thought process present Course Course Course Narrative: RME performed by Marisol Jacinto PA-C. Patient is a 22 year old assigned male at presenting to the emergency department with chest pain. Labs and imaging ordered. Patient placed back in the waiting room pending room availability and results. Medical Decision Making Medical Decision Making MDM Narrative: Patient is a 22-year-old male with history of pleurisy presenting emergency department with diffuse chest pain which lasted approximately 1 hour prior to arrival. On exam patient is awake, A+Ox3, VS WNL, afebrile, normal neurological exam without focal deficits, LS CTA throughout, RRR, abdomen soft and nontender. Given reported symptoms and physical exam findings, initial differential includes ACS, pleurisy, pneumonia, pneumothorax. Labs notable for no l eukocytosis, negative troponin. HEART score 0, PE unlikely based on PERC rule. EKG normal sinus rhythm. X-ray notable for no pneumonia or pneumothorax. My interpretation is in agreement with the radiologist's interpretation. Feel patient is stable for discharge home at this time. Instructed patient to follow-up with PCP. All results discussed and all questions answered. Return precautions discussed at bedside. Patient verbalized understanding of an agreement with plan. Differential Diagnosis Differential Diagnoses: The differential diagnosis associated with the presentation includes As per [facility]. Admission/Observation Consideration of admission/observation: Escalation of care including admission/observation considered Considered on arrival based on complaint of chest pain. Lab Data [facility] Lab Attestation statement: I reviewed the patient's lab results. As per [facility]. 09/11/22 16:11 09/11/22 16:11 Labs: Lab Results 09/11/22 09/11/22 09/11/22 Range/Units 16:11 16:11 16:11 WBC 6.5 (4.8-10.8) X10*3/uL RBC 5.50 (4.60-5.80) X10*6/uL Hgb 14.0 (14.0-18.0) g/dl Hct 44.0 (42.0-52.0) % MCV 80.0 (80.0-98.0) fL MCH 25.5 L (27.0-33.0) pg MCHC 31.8 (31.0-36.0) g/dl RDW 12.8 (11.0-16.0) % Plt Count 203 (160-400) X10*3/uL MPV 10.5 (9.4-12.4) fL Immature Gran % (Auto) 0.2 (0.0-0.4) % Neut % (Auto) 67.9 (45-73) % Lymph % (Auto) 22.8 (20-40) % [place] % (Auto) 6.6 (2-11) % Eos % (Auto) 2.0 (0-4) % Baso % (Auto) 0.5 (0-2) % Lymph # (Auto) 1.5 (1.2-4.9) X10*3/uL [place] # (Auto) 0.4 (0.1-1.2) X10*3/uL Eos # (Auto) 0.1 (0.0-0.4) X10*3/uL Baso # (Auto) 0.0 (0.0-0.2) X10*3/uL Abs Immat Gran (auto) 0.01 (0.00-0.03) X10*3/uL Absolute Neuts (auto) 4.4 (2.0-8.3) x10*3/uL Absolute Nucleated RBC 0.000 (0.0-0.012) X10*3/uL Nucleated RBC % (auto) 0.0 (0.0-0.2) /100WBC Sodium 141 (135-145) mmol/L Potassium 4.0 (3.3-5.1) mmol/L Chloride 105 (96-108) mmol/L Carbon Dioxide 28 (22-29) mmol/L Anion Gap 12 (12-20) BUN 17 H (9-16) mg/dL Creatinine 0.94 (0.5-1.4) mg/dL Estim Creat Clear Calc 113.7 Estimated GFR > 60 Random Glucose 102 (60-115) mg/dL Calcium 10.2 (8.4-10.2) mg/dL Magnesium 2.1 (1.6-2.6) mg/dL Total Bilirubin 0.4 (0.0-1.0) mg/dL AST 18 (5-37) U/L ALT 26 (0-40) U/L Alkaline Phosphatase 81 (39-117) U/L Troponin I High Sens < 2.7 (<3.5-35.0) ng/L Total Protein 7.8 (6.5-8.0) g/dL Albumin 4.6 (3.5-5.0) g/dL COVID-19 (ERMELINDA) (Negative) COVID-19 Clin Com 09/11/22 Range/Units 16:11 WBC (4.8-10.8) X10*3/uL RBC (4.60-5.80) X10*6/uL Hgb (14.0-18.0) g/dl Hct (42.0-52.0) % MCV (80.0-98.0) fL MCH (27.0-33.0) pg MCHC (31.0-36.0) g/dl RDW (11.0-16.0) % Plt Count (160-400) X10*3/uL MPV (9.4-12.4) fL Immature Gran % (Auto) (0.0-0.4) % Neut % (Auto) (45-73) % Lymph % (Auto) (20-40) % [place] % (Auto) (2-11) % Eos % (Auto) (0-4) % Baso % (Auto) (0-2) % Lymph # (Auto) (1.2-4.9) X10*3/uL [place] # (Auto) (0.1-1.2) X10*3/uL Eos # (Auto) (0.0-0.4) X10*3/uL Baso # (Auto) (0.0-0.2) X10*3/uL Abs Immat Gran (auto) (0.00-0.03) X10*3/uL Absolute Neuts (auto) (2.0-8.3) x10*3/uL Absolute Nucleated RBC (0.0-0.012) X10*3/uL Nucleated RBC % (auto) (0.0-0.2) /100WBC Sodium (135-145) mmol/L Potassium (3.3-5.1) mmol/L Chloride (96-108) mmol/L Carbon Dioxide (22-29) mmol/L Anion Gap (12-20) BUN (9-16) mg/dL Creatinine (0.5-1.4) mg/dL Estim Creat Clear Calc Estimated GFR Random Glucose (60-115) mg/dL Calcium (8.4-10.2) mg/dL Magnesium (1.6-2.6) mg/dL Total Bilirubin (0.0-1.0) mg/dL AST (5-37) U/L ALT (0-40) U/L Alkaline Phosphatase (39-117) U/L Troponin I High Sens (<3.5-35.0) ng/L Total Protein (6.5-8.0) g/dL Albumin (3.5-5.0) g/dL COVID-19 (ERMELINDA) Negative (Negative) COVID-19 Clin Com See Note Independent Interpretation I performed an independent interpretation of an: EKG and Plain X-Ray Interpretation: no acute abnormalities on chest x-ray; ekg normal sinus rhythm, rate 78 bpm, normal ID and QT intervals, no evidence of STEMI Radiology Impression Discussion of test interpretation with radiology: I have reviewed the radiologist's reading. Radiologist Impression: FINDINGS: No significant abnormality is noted involving the heart, lungs, mediastinum, bony thorax or soft tissues. XR/XR chest 2V IMPRESSION: Unremarkable examination. External Record Review External record reviewed: Inpatient record, Office record and Outpatient record Scores Heart Score History: -0- slightly suspicious ECG: -0- normal Age: -0- < or = 45 Risk factory: -0- no risk factors known Troponin: -0- < or = normal limit Score: 0 Risk: 1.7% Discharge Plan Discharge Clinical Impression: Chest pain Patient Disposition: Home, Self-Care Instructions: Chest Pain (DC) Additional Instructions: You were evaluated in the emergency department today for chest pain. Your evaluation has shown no signs of medical conditions requiring emergent intervention at this time. Please schedule an appointment for follow-up with your primary care physician as soon as possible. Return to the emergency department if you experience worsening or uncontrolled chest pain, shortness of breath, lightheadedness, feeling faint, loss of consciousness, nausea, vomiting, or any other concerning symptoms. Prescriptions: No Action amoxicillin-pot clavulanate [Augmentin] 875-125 mg tablet 1 tab PO BID Qty: 20 0RF fluticasone propionate [Flonase Allergy Relief] 50 mcg/actuation spray,suspension 1 spray intranasal BID Qty: 16 0RF Rx Instructions: administer into each nostril fluticasone propionate [Flonase Allergy Relief] 50 mcg/actuation spray,suspension 2 spray intranasal DAILY Qty: 16 0RF Rx Instructions: administer into each nostril loratadine [Allerclear] 10 mg tablet 10 mg PO DAILY PRN (Reason: allergy symptoms) Qty: 30 0RF amoxicillin-pot clavulanate 875-125 mg tablet 1 tab PO BID Qty: 20 0RF prednisone 20 mg tablet 20 mg PO DAILY 7 Days Qty: 7 0RF doxycycline hyclate 100 mg tablet 100 mg PO BID 7 Days Qty: 14 0RF loratadine 10 mg tablet 10 mg PO DAILY Qty: 30 0RF Stand Alone Forms: Work/School Release
[2022-09-11 15:30] VITALS: BP 141/86; PULSE 80; RESP 18; TEMP 36.5; O2SAT 100; BMI 29.2
--- NOTE | 2022-09-11 15:31 | ECG_ITS ---
Test Reason : CHEST PAIN Blood Pressure : / mmHG Vent. Rate : 078 BPM Atrial Rate : 078 BPM P-R Int : 164 ms QRS Dur : 084 ms QT Int : 378 ms P-R-T Axes : 039 022 001 degrees QTc Int : 430 ms Normal sinus rhythm Nonspecific T wave abnormality Abnormal ECG When compared with ECG of 14-MAY-2019 22:24, Nonspecific T wave abnormality now evident in Anterolateral leads Referred By: Marisol Jacinto Electronically Signed By:Mj Reyna
--- NOTE | 2022-09-11 16:13 | MHC.EDTECH ---
PATIENT BLOOD DRAWN AND COVID SWAB COLLECTED AND SENT TO LAB .
[2022-09-11 16:15] LABS: MANUAL DIFF FLAG NO
[2022-09-11 16:20] LABS: Basophils Percent Auto 0.5 % (0-2); Eosinophils Absolute Auto 0.1 X10*3/uL (0.0-0.4); Imm Gran Abs Auto 0.01 X10*3/uL (0.00-0.03); Imm Gran Pct Auto 0.2 % (0.0-0.4); Lymphocytes Absolute Auto 1.5 X10*3/uL (1.2-4.9); Lymphocytes Percent Auto 22.8 % (20-40); Mean Corpuscular HGB Conc 31.8 g/dl (31.0-36.0); Mean Corpuscular Hemoglobin 25.5 pg (27.0-33.0); Mean Platelet Volume 10.5 fL (9.4-12.4); Monocytes Absolute Auto 0.4 X10*3/uL (0.1-1.2); Monocytes Percent Auto 6.6 % (2-11); Neutrophils Absolute Auto 4.4 x10*3/uL (2.0-8.3); Neutrophils Percent Auto 67.9 % (45-73); Platelet Count 203 X10*3/uL (160-400); Red Cell Distribution Width 12.8 % (11.0-16.0); White Blood Count 6.5 X10*3/uL (4.8-10.8)
[2022-09-11 16:27] LABS: IDNOW Serial# 08D9AD1C
[2022-09-11 16:29] LABS: COVID-19 Test Negative (Negative)
[2022-09-11 16:38] LABS: Alanine Aminotransferase 26 U/L (0-40); Albumin Level 4.6 g/dL (3.5-5.0); Alkaline Phosphatase 81 U/L (39-117); Anion Gap 12 (12-20); Aspartate Amino Transferase 18 U/L (5-37); Bilirubin Total 0.4 mg/dL (0.0-1.0); Blood Urea Nitrogen 17 mg/dL (9-16); Calcium 10.2 mg/dL (8.4-10.2); Carbon Dioxide 28 mmol/L (22-29); Chloride 105 mmol/L (96-108); Creatinine Clr Calc Pharmacy 113.7; Estimated Glomerular Filt Rate > 60; Glucose Random 102 mg/dL (60-115); Magnesium 2.1 mg/dL (1.6-2.6); Sodium 141 mmol/L (135-145); Total Protein 7.8 g/dL (6.5-8.0)
[2022-09-11 16:50] LABS: Troponin-I High Sensitivity < 2.7 ng/L (<3.5-35.0)
== END 2022-09-11 18:34 | disposition home or self-care (01) ==
PROVIDERS: Physician Assistant Medical; Emergency Provider Emergency Medicine; PCP Nurse Practitioner Primary Care
DX: R07.9 Chest pain, unspecified (principal); Z20.822 Contact with and (suspected) exposure to COVID-19; J45.909 Unspecified asthma, uncomplicated; Z79.899 Other long term (current) drug therapy
CPT/HCPCS: 71046; 80053; 83735; 84484; 85025; 87635; 93005; 99283

== ENCOUNTER → 2022-09-11 15:31 | Outpatient (BNV) | payer MEDICAID, SELFPAY | PROVIDERS: Emergency Provider Emergency Medicine; PCP Nurse Practitioner Primary Care; Visit Provider Internal Medicine Cardiovascular Disease | DX: R07.9 Chest pain, unspecified (principal) | CPT/HCPCS: 93010 ==

== ENCOUNTER 2023-02-08 11:37 | Outpatient (REF) | payer MEDICAID, SELFPAY ==
[2023-02-08 14:51] LABS: Cholesterol 201 mg/dL (<200); HDL Cholesterol 42 mg/dL (>40); LDL Cholesterol Calculated 134 mg/dL (<100); Triglycerides 125 mg/dL (<150)
[2023-02-11 07:49] LABS: TS Negative Control Passed; TS Panel A 0; TS Panel B 0; TS Positive Control Passed; TSpotTB Negative (Negative)
== END 2023-02-08 11:38 | disposition home or self-care (01) ==
LOC: HO.CHCLDS 11:37
PROVIDERS: Visit Provider Registered Nurse
DX: Z00.00 Encounter for general adult medical examination without abnormal findings (principal); Z11.1 Encounter for screening for respiratory tuberculosis
CPT/HCPCS: 36415; 80061; 86481

== ENCOUNTER 2023-11-04 05:31 | Emergency (ER) | payer MEDICAID, SELFPAY ==
[2023-11-04 05:33] VITALS: BP 117/79; PULSE 76; RESP 18; TEMP 36.6; O2SAT 98
[2023-11-04 06:06] LABS: IDNOW Serial# 08D9AD1C; Strep A Nucleic Acid Negative (Negative)
--- NOTE | 2023-11-04 06:07 | ED_ITS ---
HPI - General Adult General Chief complaint: General Medical Stated complaint: Swollen tonsil Time Seen by Provider: 11/04/23 06:03 Source: patient Mode of arrival: ambulatory Limitations: no limitations History of Present Illness ED Provider: Dr. Sofiya Peraza HPI narrative: Patient comes to the emergency room complaining of sore throat for 1 hour. Patient states that he woke up with a sore throat. Patient denies fever chills, no difficulty swallowing but hurts doing so. Denies any cough, no ear pain, no nausea vomiting or diarrhea. Related Data Previous Rx's ?Medication ?Instructions ?Recorded amoxicillin 875 mg-potassium 1 tab PO BID #20 tabs 04/07/20 clavulanate 125 mg tablet (Augmentin) fluticasone propionate 50 1 spray intranasal BID #16 grams 04/07/20 mcg/actuation nasal spray,suspension (Flonase Allergy Relief) fluticasone propionate 50 2 spray intranasal DAILY #16 grams 06/04/20 mcg/actuation nasal spray,suspension (Flonase Allergy Relief) loratadine 10 mg tablet 10 mg PO DAILY PRN allergy 06/04/20 (Allerclear) symptoms #30 tabs amoxicillin 875 mg-potassium 1 tab PO BID #20 tabs 05/09/22 clavulanate 125 mg tablet doxycycline hyclate 100 mg tablet 100 mg PO BID 7 days #14 tabs 07/07/22 loratadine 10 mg tablet 10 mg PO DAILY #30 tabs 07/07/22 prednisone 20 mg tablet 20 mg PO DAILY 7 days #7 tabs 07/07/22 ibuprofen 400 mg tablet 400 mg PO Q8H PRN fever or pain 11/04/23 #20 tabs Allergies Allergy/AdvReac Type Severity Reaction Status Date / Time No Known Allergies Allergy Verified 11/04/23 05:35 Review of Systems Review of Systems: Constitutional : No Weight loss, No Fever, No Chills, No Night Sweats, No Fatigue, No Malaise ENT/Mouth : No Hearing loss, No Ear Pain, No Nasal Congestion, No Sinus Pain, No Hoarseness, bleeding of sore throat, No Rhinorrhea, No Swallowing Difficulty Eyes: No Eye Pain, No Swelling, No Redness, No Foreign Body, No Discharge, No Vision Changes Cardiovascular : No Chest Pain, No SOB, No Dyspnea on Exertion, No Orthopnea, No Edema, No Palpitations Respiratory : No Cough, No Sputum, No Wheezing, No Smoke Exposure, No Dyspnea Gastrointestinal : No Nausea, No Vomiting, No Diarrhea, No Constipation, No abdominal Pain, No Hematochezia, No Melena Genitourinary : no irregular bleeding, No Dysuria, No Urinary Frequency, No Hematuria, No Urinary Incontinence, No Urgency, No Flank Pain, No Urinary Flow Changes, No Hesitancy Musculoskeletal : No joint pain, No Myalgias, No Joint Swelling Skin : No Skin Lesions, No rash Neuro : No Weakness, No Numbness, No Paresthesias, No Loss of Consciousness, No Dizziness, No Headache Psych : No Anxiety/Panic, No Depression, No SI/HI/AH/VH, No Social Issues, Heme/Lymph: No Bruising, No Bleeding,No Lymphadenopathy Endocrine : No Polyuria, No Polydipsia, No Temperature Intolerance [facility] Past Medical History Medical History Asthma Social History Social History Alcohol intake: current Alcohol intake frequency: holidays/special occasions only Advance Directives: No Advance Directives Information Provided: Yes Do you have a plan to hurt others: No Plan Physical Exam ED Vital Signs: Vital Signs - 24 hr 11/04/23 05:33 11/04/23 06:25 Temperature 97.9 F 97.9 F Pulse Rate 76 69 Respiratory Rate 18 16 Blood Pressure 117/79 118/78 Pulse Oximetry 98 98 Oxygen Delivery Method Room Air Room Air BMI result Body Mass Index 30.0 Const Other: Appearance: Alert. Oriented X3. No acute distress. Eyes: Pupils equal, round and reactive to light. ENT: Erythematous oropharynx, no exudates on the tonsils, mildly swollen, no obvious abscesses Neck: Normal inspection. Neck supple. No lymph nodes noted. No crepitus CVS: Normal heart rate and rhythm. Pulses normal. Normal S1 and S2 Respiratory: No respiratory distress. Breath sounds normal. No Wheezing. No rales Abdomen: Soft and nontender. No rigidity. No distention. Skin: Skin warm and dry. Normal skin color. Normal skin turgor. Extremities: No lower extremity edema. No Lacerations. No Rash Neuro: Oriented X 3. No motor deficit. No sensory deficit. Moving all extremities. No slurred speech. CN 2 through 12 grossly intact Psych: calm, cooperative, normal affect Medications Administered Discontinued Medications Generic Name Dose Route Start Last Admin Trade Name Annabella PRN Reason Stop Dose Admin Dexamethasone Sodium Phosphate 6 mg 11/04/23 06:06 11/04/23 06:16 Dexamethasone Sod Phosphate 4 Mg/Ml Vial IVPUSH 11/04/23 06:07 6 mg ONCE ONE Administration Ibuprofen 600 mg 11/04/23 06:06 11/04/23 06:16 Ibuprofen 600 Mg Tablet PO 11/04/23 06:07 600 mg ONCE ONE Administration Lidocaine HCl 15 ml 11/04/23 06:06 11/04/23 06:16 Lidocaine Hcl Viscous 2 % 15 Ml Solution MUCOUS MEM 11/04/23 06:07 15 ml ONCE ONE Administration Medical Decision Making Medical Decision Making [facility] Narrative: My interpretation of labs: Negative for strep, negative COVID -patient likely has viral pharyngitis -patient receiving ibuprofen, p.o. Decadron and viscous lidocaine for symptomatic relief Differential Diagnosis Differential Diagnoses: The differential diagnosis associated with the presentation includes (COVID, strep, viral pharyngitis, tonsillitis) Admission/Observation Consideration of admission/observation: Escalation of care including admission/observation considered Lab Data [facility] Lab Attestation statement: I reviewed the patient's lab results. Labs: Lab Results 11/04/23 Range/Units 05:49 COVID-19 (ERMELINDA) Negative (Negative) COVID-19 Clin Com See Note S. pyogenes GrpA CHU Negative (Negative) Discharge Plan Discharge Clinical Impression: Pharyngitis Patient Disposition: Home, Self-Care Instructions: Pharyngitis (ED) Additional Instructions: Please follow-up with your primary care physician tomorrow. If you have any worsening or new symptoms, please return to the emergency room or call 911 Prescriptions: New ibuprofen 400 mg tablet 400 mg PO Q8H PRN (Reason: fever or pain) Qty: 20 0RF No Action amoxicillin-pot clavulanate [Augmentin] 875-125 mg tablet 1 tab PO BID Qty: 20 0RF fluticasone propionate [Flonase Allergy Relief] 50 mcg/actuation spray,suspension 1 spray intranasal BID Qty: 16 0RF Rx Instructions: administer into each nostril fluticasone propionate [Flonase Allergy Relief] 50 mcg/actuation spray,suspension 2 spray intranasal DAILY Qty: 16 0RF Rx Instructions: administer into each nostril loratadine [Allerclear] 10 mg tablet 10 mg PO DAILY PRN (Reason: allergy symptoms) Qty: 30 0RF amoxicillin-pot clavulanate 875-125 mg tablet 1 tab PO BID Qty: 20 0RF prednisone 20 mg tablet 20 mg PO DAILY 7 Days Qty: 7 0RF doxycycline hyclate 100 mg tablet 100 mg PO BID 7 Days Qty: 14 0RF loratadine 10 mg tablet 10 mg PO DAILY Qty: 30 0RF Print Language: Vietnamese
[2023-11-04] MEDS: dexAMETHasone sod phosphate 4 MG/ML VIAL 6 MG IVPUSH (06:16)
[2023-11-04] MEDS: Lidocaine HCl Viscous 2 % 15 ML SOLUTION MUCOUS MEM (06:16)
[2023-11-04] MEDS: Ibuprofen 600 MG TABLET PO (06:16)
[2023-11-04 06:25] VITALS: BP 118/78; PULSE 69; RESP 16; TEMP 36.6; O2SAT 98
--- OUTSIDE RECORDS SUMMARY | 2023-11-04 06:27 | XMS_ITS | Continuity of Care Document ---
Author Organization [facility] e Medicine Address [address] [place] [phone] Care Team Providers Care Laundry Machine Tender Name Role Phone Derick Bland MD Primary Care Physician [place] [facility] [place]/29/22 [facility] [address] [place] [id number] Attending Physician: Admtr, [id number] Admitting Physician: AdmtrSean Referring Physician: Admtr, Ar8 Allergies, Adverse Reactions, Alerts No Known Allergies Problem List Condition Confirmation Course Effective Dates Status Health St atus Informant SS - Short stature Confirmed Active Social History Social History Type Response Smoking Status Never (less than 100 in lifetime) entered on: 04/03/21 Sex Patient Care team information Care Team Personnel Name: Derick Bland MD Position: [facility] General Pediatrics MD Member Role: PCP Address: Address: [address] [place] [address] [place] [id number]- Care Team Related Persons Name: KYLER DONAHUE Address: home [address] [place] [address]
[2023-11-04 06:37] LABS: COVID-19 Test Negative (Negative); IDNOW Serial# 08D9AD1C
[2023-11-04 06:47] VITALS: BP 118/78; PULSE 69; RESP 16; TEMP 36.6; O2SAT 98
== END 2023-11-04 06:47 | disposition home or self-care (01) ==
PROVIDERS: Emergency Provider Emergency Medicine; PCP Nurse Practitioner Primary Care
DX: J02.9 Acute pharyngitis, unspecified (principal); Z11.52 Encounter for screening for COVID-19
CPT/HCPCS: 87635; 87651; 99283; 99284; J1100

== ENCOUNTER 2024-04-26 14:38 | Emergency (ER) | payer OTHER, SELFPAY ==
[2024-04-26 14:58] VITALS: BP 123/82; PULSE 73; RESP 16; TEMP 36.9; O2SAT 100; BMI 29.3
--- NOTE | 2024-04-26 14:58 | ED_ITS ---
HPI - URI/Sore Throat General Chief Complaint: Upper Respiratory Symptoms Stated Complaint: Sore Throat Time Seen by Provider: 04/26/24 18:09 Source: patient, RN notes reviewed and old records reviewed Mode of arrival: ambulatory History of Present Illness ED Provider: Alona Dalton PA-C [facility] Narrative: 23-year-old male with a past medical history of asthma presenting to the ED complaining of sore throat x1 week, worse on the right side. Reports history of recurrent tonsillitis. Reports painful swallowing, denies difficulty or inability to swallow, fever, chills, sick contacts, ear pain, cough Related Data Previous Rx's ?Medication ?Instructions ?Recorded amoxicillin 875 mg-potassium 1 tab PO BID #20 tabs 04/07/20 clavulanate 125 mg tablet (Augmentin) fluticasone propionate 50 1 spray intranasal BID #16 grams 04/07/20 mcg/actuation nasal spray,suspension (Flonase Allergy Relief) fluticasone propionate 50 2 spray intranasal DAILY #16 grams 06/04/20 mcg/actuation nasal spray,suspension (Flonase Allergy Relief) loratadine 10 mg tablet 10 mg PO DAILY PRN allergy 06/04/20 (Allerclear) symptoms #30 tabs amoxicillin 875 mg-potassium 1 tab PO BID #20 tabs 05/09/22 clavulanate 125 mg tablet doxycycline hyclate 100 mg tablet 100 mg PO BID 7 days #14 tabs 07/07/22 loratadine 10 mg tablet 10 mg PO DAILY #30 tabs 07/07/22 prednisone 20 mg tablet 20 mg PO DAILY 7 days #7 tabs 07/07/22 ibuprofen 400 mg tablet 400 mg PO Q8H PRN fever or pain 11/04/23 #20 tabs Allergies Allergy/AdvReac Type Severity Reaction Status Date / Time No Known Allergies Allergy Verified 04/26/24 15:00 Review of Systems Review of Systems: Yes all other systems are reviewed and are negative Constitutional: Constitutional: Reports as per [facility] Past Medical History Attestation statement: The following information was validated with the patient. Source: old records reviewed Medical History Asthma Social History Social History Alcohol intake: current Alcohol intake frequency: holidays/special occasions only Physical Exam Vital Signs: Vital Signs: Last Vital Signs Temp 98.4 F 04/26/24 14:58 Pulse 73 04/26/24 14:58 Resp 16 04/26/24 14:58 BP 123/82 04/26/24 14:58 Pulse Ox 100 04/26/24 14:58 O2 Del Method Room Air 04/26/24 14:58 BMI result Body Mass Index 29.3 Const: General: cooperative, healthy appearing and no acute distress Orientation/consciousness: patient oriented x3 Limitations: no limitations HEENT: Head: Yes normal to inspection and Yes atraumatic Ears: hearing grossly normal bilaterally General nose exam: Normal external nose present Face and sinus: Yes normal facial exam Mouth: no drooling Throat: Yes uvula midline, Yes abnormal tonsil (+bilateral tonsillar swelling, faint erythema & faint exudates), No peritonsillar mass, No uvula laterally displaced and No uvular edema Eyes: General: appearance normal, both eyes and all related structures EOM: EOMs intact bilaterally Neck: Neck: Yes normal visual inspection, Yes no lymphadenopathy, Yes no meningeal signs, Yes supple and No anterior neck swelling Resp: Effort & Inspection: normal respiratory effort, no respiratory distress and no stridor Cardio: Rate: regular rate Skin: Rashes: no rashes Wounds: no wounds Neuro: General: patient oriented x3, tone normal and no meningeal signs Cranial nerves: Yes CN's II-XII intact bilaterally Gait exam (Neuro): Normal gait present Extrem: General: Yes normal to inspection Course Course Course Narrative: This is a Rapid Medical Exam performed in triage by Alona Dalton PA-C. Full HPI, ROS and PE to be performed by primary ED provider. 23 yo M presenting to the ED c/o sore throat x1 week, worse on the right side. denies difficulty/inability to swallow. PE: + bilateral tonsillar swelling, erythema and faint exudates Plan: COVID/flu/RSV and rapid strep negative > COVID/flu/RSV and rapid strep negative -will obtain Monospot prior to discharge. Discussed with patient no need for antibiotics at this time. Discussed OTC throat numbing medications, gargling with warm saltwater, Tylenol, Motrin, ENT follow-up Results discussed with patient including worrisome signs and symptoms and strict return precautions, and when to return to the emergency department. They verbalized understanding and feel safe for discharge at this time. Medical Decision Making Medical Decision Making [facility] Narrative: 23-year-old male with a past medical history of asthma presenting to the ED complaining of sore throat x1 week, worse on the right side. On exam VSS, NAD, nontoxic appearing, PE as above. + bilateral tonsillar swelling, erythema and faint exudates. Uvula midline. Handling secretions. Nontoxic appearing, no respiratory distress. No lymphadenopathy. Concern for strep pharyngitis vs viral pharyngitis vs ? Mononucleosis. No evidence of [employer]/retropharyngeal abscess Plan: Viral testing, rapid strep Please refer to course for remaining clinical decision making, interpretation of labs/imaging results, and discussions with consultants and/or family members. Differential Diagnosis Differential Diagnoses: The differential diagnosis associated with the presentation includes As above Lab Data [facility] Lab Attestation statement: I reviewed the patient's lab results. Labs: Lab Results 04/26/24 Range/Units 15:57 Influenza Type A (PCR) NEGATIVE (Negative) Influenza Type B (PCR) NEGATIVE (Negative) RSV RNA Qual (PCR) NEGATIVE (Negative) SARS-CoV-2 RNA (RT-PCR) NEGATIVE (Negative) S. pyogenes GrpA CHU Negative (Negative) External Record Review External record reviewed: Inpatient record, Office record, Outpatient record, Prior outpatient labs, Prior outpatient radiology, Primary care record and Outside ED record Tests considered The following testing was considered but not selected: As above Prescription Management I considered prescription management with: Pain Medication and Antibiotic Chronic Conditions Patient?s care impacted by: Other Social Determinants Patient?s care significantly limited by Social Determinants of Health including: Other Social Determinant of Health Discharge Plan Discharge Clinical Impression: Pharyngitis Patient Disposition: Home, Self-Care Instructions: Pharyngitis (ED) Additional Instructions: You tested negative for COVID, flu, RSV. We tested you for mono, this result is currently pending, you will be contacted with positive results only Please gargle with warm saltwater, take Tylenol and ibuprofen as needed You can take [id number] throat numbing/pain relievers like Cepacol Due to your recurrent throat infections you should follow up with an Ear Nose Throat specialist Prescriptions: No Action amoxicillin-pot clavulanate [Augmentin] 875-125 mg tablet 1 tab PO BID Qty: 20 0RF fluticasone propionate [Flonase Allergy Relief] 50 mcg/actuation spray,suspension 1 spray intranasal BID Qty: 16 0RF Rx Instructions: administer into each nostril fluticasone propionate [Flonase Allergy Relief] 50 mcg/actuation spray,suspension 2 spray intranasal DAILY Qty: 16 0RF Rx Instructions: administer into each nostril loratadine [Allerclear] 10 mg tablet 10 mg PO DAILY PRN (Reason: allergy symptoms) Qty: 30 0RF amoxicillin-pot clavulanate 875-125 mg tablet 1 tab PO BID Qty: 20 0RF ibuprofen 400 mg tablet 400 mg PO Q8H PRN (Reason: fever or pain) Qty: 20 0RF prednisone 20 mg tablet 20 mg PO DAILY 7 Days Qty: 7 0RF doxycycline hyclate 100 mg tablet 100 mg PO BID 7 Days Qty: 14 0RF loratadine 10 mg tablet 10 mg PO DAILY Qty: 30 0RF Referrals: Carmina Samano PA-C [Nurse Practitioner] - Edinson Tellez [Physician] - Gina Bolivar NP [Primary Care Provider] - 5 days Stand Alone Forms: Work/School Release Print Language: Emirati
[2024-04-26 16:20] LABS: IDNOW Serial# 08D9AD1C; Strep A Nucleic Acid Negative (Negative)
[2024-04-26 16:50] LABS: Influenza A PCR NEGATIVE (Negative); Influenza B PCR NEGATIVE (Negative); Resp Syncy Virus RNA Qual PCR NEGATIVE (Negative); SARS COV2 PCR INHOUSE NEGATIVE (Negative)
[2024-04-26 18:36] VITALS: BP 122/78; PULSE 72; RESP 16; TEMP 36.7; O2SAT 100
[2024-04-26 18:43] LABS: Monotest Negative (Negative)
--- OUTSIDE RECORDS SUMMARY | 2024-04-26 19:37 | XMS_ITS | Clinical Summary ---
Author Organization [employer] Address [address] [place] [address] Care Team Providers Care Branch Associate Name Role Phone Gina Bolivar Primary Care Provider [phone] Allergies No known active allergies Medications * This document contains information received from the source organization and may not represent a complete record from that organization. 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 With dentist to r/o Malocclusion. Use Trazodone 25 mg 1-2 hrs prior to sleep and follow up with PCP. I gave him information on dental clinics in the area to make on appointment with dentist. Healthcare maintenance 02/11/2023 Overview (02/11/2023): ?? Last PE: 02/08/23 ?? Optometry: [facility] (last Nov 2022) Social anxiety disorder 12/28/2022 Assessment & Plan (02/11/2023 10:18 AM EST): ?? BE Dec 2022, pt referred for out patient therapy ?? Denies current SI/Hi/thoughts of self harm Assessment & Plan (12/31/2022 10:02 AM EST): Patient with symptoms of social anxiety. No risk of SI/HI nor self-harm. Reason for visit was to assess symptoms, provide intervention and offer referral. Severe anxiety when being exposed to social situations, new job and avoidance are exacerbating symptoms. Provided psychoeducation around anxiety and the importance of recognizing body language when feeling anxious and sitting with the emotions. Plan is to refer patient to OP individual therapy. At this time Armando Vasquez meets criteria for Visit Diagnoses: Problem List Items Addressed This Visit Other Social anxiety disorder Patient ready to address current needs Yes Strengths include readiness to take action PLAN: 1. Follow up with [facility]: Not recommended for follow-up 2. Patient goal is to start individual therapy and be able to decrease social anxiety 3. Behavioral Recommendations a. OP referral for individual therapy b. Incorporate mindfulness techniques and self-care into daily routine c. Contact clinician if needed during next physical exam with provider SS (short stature) 07/15/2022 Sinusitis 07/15/2022 Seasonal allergies 05/14/2021 Assessment & Plan (02/11/2023 10:16 AM EST): -Currently well controlled -Continues with cetirizine PRN (requested removal from med list as not currently active, purchase OTC PRN) Encounters Date Type Department Care Team Description 02/02/2024 Patient Outreach [facility] MEDICINE [address] [place] [phone] Gina Bolivar ANP Pre-visit Planning (Pre-visit planning - LVM ) from Last 3 Months Immunizations Name Administration Dates Next Due DTaP / IPV 1998 DTaP, 5 pertussis antigens 09/15/2002,,03/14/1999,10/17 HPV 9-Valent 04/18/2015 HPV, Quadrivalent 06/28/2014,05/02/2014 Hep A, ped/adol, 2 dose 03/10/2017,05/02/2014 Hep B, adult 03/14/1999,1998,1998 HiB, unspecified 12/12/1999,03/14/1999, 9 Hib (HbOC) 1998 IPV 09/15/2002,03/14/1999,1998 Influenza injectable quadriv alent IIV4 with preservative 11/04/2018 Influenza injectable quadriv alent preservative free 11/27/2016 Influenza, Split (incl. lance fied surface antigen) 01/18/2013 MMR 09/15/2002,08/01/1999 Meningococcal MCV4P ACYW-135 03/10/2017,10/21/19 11 Pneumococcal Conjugate PCV 13 10/10/1999 Pneumococcal Polysaccharide PPSV23 12/12/1999 Tdap 02/08/2023,10/20/2010 Varicella 10/26/2006,08/01/1999 Family History Medical History Relation Name Comments Diabetes Father Seizures Father palpitations Father Heart attack Maternal Grandfather Arthritis Mother Diabetes type II Paternal Grandmother cardiac conditions Paternal Grandmother Relation Name Status Comments Father Maternal Grandfather Alive Mother Paternal Grandmother Social History Tobacco Use Types Packs/Day Years Used Date Smoking Tobacco: Never Smokeless Tobacco: Never Tobacco Cessation:Counseling Given: Not Answered Alcohol Use Standard Drinks/Week Comments Yes 0 (1 standard drink = 0.6 oz pur e alcohol) oca Alcohol Answer Date Recorded Frequency of Alcohol Consumption Not on file 02/08/2023 Average Number of Drinks Not on file 023 Frequency of Binge Drinking Not on file 01/22 Score 0 02/08/2023 Depression Answer Date Recorded Patient Health Questionnaire-9 Score 0 02/08/2023 Patient Health Questionnaire-9 Score 0 02/08/2023 Last PHQ-9: Questionnaire Data Not on file 1 04/11/2022 Housing Stability Answer Date Recorded What is your housing situation today? I have enrico meza 12/08/[address] you li ve. Do you have problems with any of the following? None of the above 12/08/2022 Food Insecurity Answer Date Recorded Within the past 12 months, y ou worried that your food would run out before you got money to buy more: Never True 12/08/2022 Within the past 12 months,th e food you bought just didn't last and you didn't have enough money to get more: Never True Transportation Answer Date Recorded In the past 12 months, has l ack of transportation kept you from medical appts, meetings, work or from getting things needed for daily living? No 12/08/2022 Utilities Answer Date Recorded In the past 12 months, has t he electric, gas, oil or water company threatened to shut off services in your home? No 12/08/2022 Depression Answer Date Recorded Patient Health Questionnaire-2 Score 0 02/08/2023 Sex and Gender Information Value Date Recorded Sex Assigned at Male 12/22/2021 10:16 AM EDT Legal Sex Male 10:16 AM EDT Gender Identity Male 12/22/2021 10:16 AM EDT Sexual Orientation Choose not to disclose 2021 10:16 AM EDT Last Filed Vital Signs Vital Sign Reading Time Taken Comments Blood Pressure 129/81 10/21/2023 11:51 AM EDT Pulse 71 10/21/2023 11:51 AM EDT Temperature 36.7 ??C (98.1 ??F) 10/21/2023 11:51 AM E DT Respiratory Rate 20 02/08/2023 10:32 AM EST Oxygen Saturation 100% 10/21/2023 11:51 AM EDT Inhaled Oxygen Concentration - - Weight 81 kg (178 lb 8 oz) 10/21/2023 11:51 AM E DT Height 152.4 cm (5') 10/21/2023 11:51 AM EDT Body Mass Index 34.86 10/21/2023 11:51 AM EDT Plan of Treatment Health Maintenance Due Date Last Done Comments HIV Screening 1998 Alcohol/Substance Use Screening 2010 Family Planning (PISQ) 2013 Hepatitis C Screening 2016 COVID-19 Vaccine ( season) 2023 Influenza Vaccine (#1) 2023 9, 11/27/2016, 01/18/2013 Depression Screening 02/09/2024 02/08/2023, 02/09/20 23 SDOH Screening 02/09/2024 02/08/2023 Tobacco Screening 10/20/2024 10/21/2023 DTaP/Tdap/Td Vaccines (8 - Td or Tdap) 02/08/2033 02/08/2023, 10/20/2010, 09/15/2002, Additional history exists Zoster Vaccines (1 of 2) 2048 RSV Patients and Patients Aged 60 years or older (1 - 1-dose 75+ series) 2073 Hepatitis B Vaccines Completed 03/14/1999, 1998, 1998 HIB Vaccines Completed 12/12/1999, 02/23, 1998, Additional history exists Pneumococcal Vaccine: Pediatrics (0 to 5 Years) and At-Risk Patients (6 to 49) Years) Aged Out 12/12/1999, 10/10/1999 No longer eligibl e based on patient's age to complete this topic IPV Vaccines Completed 09/15/2002, 02/23, 1998, Additional history exists HPV Vaccines Completed 04/18/2015, 08/2014, 05/02/2014 Hepatitis A Vaccines Completed 03/10/2017, 05/03/19 15 Meningococcal Vaccine Completed 03/10/2017, 011 RSV under 20 months Aged Out No longe r eligible based on patient's age to complete this topic Rotavirus Vaccines Aged Out No longer eligible based on patient's age to complete this topic Procedures Procedure Name Priority Date/Time Associated Diagnosis Comments MONONUCLEOSIS TEST, QUALITATIVE Routine 04/26/2024 6:20 PM EST SARS COV2/INFLUENZA A/B AND RSV RNA QL NAAT Routine 04/26/2024 3:57 PM EST STREP A NUCLEIC ACID Routine 04/26/2024 3:57 PM EST from Last 3 Months Results * Mononucleosis Test, Qualitative (04/26/2024 6:20 PM EST) [facility] Monotest Negative Negative [facility] 04/26/2024 6:20 PM EST 04/26/2024 6:22 PM EST us Generic External Data Provider LAB BLOOD ORDERAB LES Final Result [facility] [address] [place] [phone] * Strep A Nucleic Acid (04/26/2024 3:57 PM EST) [facility] IDNOW SERIAL# [id number] [facility] Strep A Nucleic Acid Negative Negative [facility] Comment:All test results mus t be correlated with clinical findings.This test has not been evaluated for monitoring treatment ofinfection.Additional follow-up testing using the culture method isrequired if the result is negative and clinical symptomspersist, or in the event of an acute rheumatic feveroutbreak. 04/26/2024 3:57 PM EST 04/26/2024 4:04 PM EST us Generic External Data Provider LAB MICROBIOLOGY - GENERAL ORDERABLES Final Result Performing Organization Address [facility]/ZIP Co de Phone Number [facility] [address] [place] [phone] * SARS-CoV-2 RNA, Influenza A/B, and RSV RNA, Ql NAAT (04/26/2024 3:57 PM EST) Pathologist [facility] Influenza A PCR NEGATIVE Negative [facility] Influenza B PCR NEGATIVE Negative [facility] Resp Syncy Virus RNA Qual PCR NEGATIVE Negative [facility] SARS COV2 PCR NEGATIVE Negative [facility] Comment:All test results mus t be correlated with clinical findings.Negative results do not preclude SARS-CoV2, influenza Avirus, influenza B virus and/or RSV infectionand should not be used as the sole basis for treatment orother patient management decisions. Negative results must becombined with clinical observations, patient history, andepidemiological information.This test has not been evaluated for monitoring treatment ofinfection.This test has been authorized by the FDA under an EmergencyUse Authorization (EUA) for use by authorized laboratories.Testing performed on the [employer] GeneXpert utilizingreal-time RT-PCR.All SARS CoV2 and positive influenza A/B results arereported to [facility]. 04/26/2024 3:57 PM EST 04/26/2024 4:04 PM EST us Generic External Data Provider LAB MICROBIOLOGY - GENERAL ORDERABLES Final Result Performing Organization Address City/[facility]/ZIP Co de Phone Number [facility] [address] [place] [address] [phone] from Last 3 Months Insurance [facility] C3 HSN FULL Care Teams Branch Associate Relationship Specialty Start Date End Date Gina Bolivar ANP [address] [place] [address] PCP - General Family Medicine 10/16/21
== END 2024-04-26 18:37 | disposition home or self-care (01) ==
PROVIDERS: Physician Assistant; Emergency Provider Emergency Medicine; PCP Nurse Practitioner Primary Care
DX: J02.9 Acute pharyngitis, unspecified (principal); J45.909 Unspecified asthma, uncomplicated; Z03.818 Encounter for observation for suspected exposure to other biological agents ruled out
CPT/HCPCS: 0241U; 36415; 86308; 87651; 99282; 99283